=== PATIENT | female | born 1980 | race Caucasian/White ===

== ENCOUNTER 2021-01-22 22:55 | Observation (INO) ==
[2021-01-22] MEDS ORDERED: Lidocaine 2% JELLY 10 ML JELLY TOPICAL ONE (23:38)
[2021-01-23 00:25] LABS: ABS Eosinophils 0.1 10^3/ul (0-0.6); ABS Lymphocytes 1.6 10^3/ul (1.0-4.8); ABS Monocytes 0.9 10^3/ul (0-0.8); ABS Neutrophils 7.1 10^3/ul (1.5-7.7); Eosinophil % 1.3 %; Hematocrit 34 % (35-47); Hemoglobin 11.3 g/dL (12.0-16.0); Lymphocyte % 15.9 %; Mean Corpuscular HGB Conc 34 g/dL (31-36); Mean Corpuscular Hemoglobin 30 pg (27-31); Mean Corpuscular Volume 91 fL (80-97); Mean Platelet Volume 7.3 fL (7.4-10.4); Platelet Count 225 10^3/uL (150-450); Red Blood Count 3.72 10^6 /uL (3.70-4.87); Red Cell Distribution Width 14 % (10-15); White Blood Count 9.8 10^3/uL (3.5-10.8)
[2021-01-23 00:40] LABS: Albumin/Globulin Ratio 1.4 (1-3); C Reactive Protein 77.61 mg/L (<8.01); Calcium 8.7 mg/dL (8.6-10.3); EGFR African American 91.7 (>60); EGFR Non-African American 75.8 (>60); Globulin 2.8 g/dL (2-4); Potassium 3.7 mmol/L (3.5-5.0); Total Bilirubin 0.5 mg/dL (0.2-1.0); Total Protein 6.8 g/dL (6.4-8.9)
[2021-01-23] MEDS ORDERED: Iohexol 300 (CONTRAST) 10 ML SDV IV ONE (00:42)
[2021-01-23] MEDS ORDERED: Lidocaine 2% JELLY 6 ML TOPICAL ONE (02:00)
[2021-01-23] MEDS ORDERED: Piperacillin/Tazobac ADVAN 3.375 GM in NS 0.9% 100 ml BAG 100 ML IV ONE (04:00)
[2021-01-23] MEDS ORDERED: Morphine 4 MG/ML VIAL (1 ml) IV ONE (04:03)
[2021-01-23] MEDS: NS 0.9% 1000 ml BAG 1,000 ML IV SCH ×2 (04:34→06:35)
[2021-01-23] MEDS: HYDROmorphone 1 MG/1 ML SYRINGE IV SLOW PU PRN ×5 (06:38→16:18)
[2021-01-23] MEDS: Piperacillin/Tazobactam VIAL 3.375 GM in NS 0.9% 100 ml BAG 100 ML IVPB SCH ×2 (09:14→16:49)
[2021-01-23] MEDS: Ondansetron 4 mg VIAL 2 MG/ML 2 ml VIAL IV PRN ×2 (10:58→16:46)
[2021-01-23] MEDS ORDERED: ceFAZolin 2 GM in NS PREMIX 2 GM/100 ML BAG IVPB ONE (17:25)
[2021-01-23] MEDS ORDERED: Bupivacaine 0.5% SDV PF 30ML VIAL ONE (17:54)
[2021-01-23] MEDS ORDERED: Lidocaine 1% VIAL 10 MG/ML VIAL ONE (17:54)
[2021-01-23] MEDS ORDERED: Ketamine HCL 50 mg/ml 10 ml VIAL (500 MG) ONE (18:27)
[2021-01-23] MEDS ORDERED: Midazolam 5 mg/5 ml VIAL 1 mg/ml 5 ml VIAL (5 mg) ONE (18:27)
[2021-01-23] MEDS ORDERED: Lidocaine 2% PF 5 ML VIAL ONE (18:27)
[2021-01-23] MEDS ORDERED: Propofol 10 MG/ML 20 ML BTL ONE ×3 (18:27→19:44)
[2021-01-23] MEDS ORDERED: fentaNYL 100 mcg/2 ml 50 MCG/ML VIAL ONE (18:27)
[2021-01-23] MEDS ORDERED: Ondansetron 4 mg VIAL 2 MG/ML 2 ml VIAL ONE (18:27)
[2021-01-23 20:13] VITALS: BP 154/85
[2021-01-23] MEDS ORDERED: oxyCODONE/Acetamin 5/325 mg TAB PO PRN (20:33)
[2021-01-23] MEDS ORDERED: oxyCODONE/Acetamin 5/325 mg TAB ONE (20:34)
== END 2021-01-23 20:05 | disposition home or self-care (01) ==
LOC: ED 22:55 → SSU 22:55
PROVIDERS: ADMIT Surgery; ATTEND Surgery
PROC: O.GEI&D (2021-01-23 17:00)